=== PATIENT | female | born 1990 | race African-American/Black ===

== ENCOUNTER 2018-08-24 09:21 | Emergency (ER) | payer SELFPAY ==
[~2018-08-24] VITALS: Ht 162.6 cm; Wt 100.0 kg
[2018-08-24] MEDS ORDERED: HYDROCORTISONE (09:47)
[2018-08-24 11:43] VITALS: BP 126/50
== END 2018-08-24 11:48 | disposition home or self-care (01) ==
LOC: ER 09:21
DX: B35.4 Tinea corporis (principal); F12.10 Cannabis abuse, uncomplicated; F17.200 Nicotine dependence, unspecified, uncomplicated; Z79.899 Other long term (current) drug therapy
CPT/HCPCS: 99282

== ENCOUNTER 2025-06-24 00:52 | Emergency (ER) | payer SELFPAY ==
[~2025-06-24] VITALS: Ht 162.6 cm; Wt 85.5 kg
[~2025-06-24 00:52] MED LIST: HYDROCORTISONE
[2025-06-24 00:58] VITALS: O2SAT 100
[2025-06-24] MEDS: SODIUM CHLORIDE 0.9% 1,000 ML IV ONE (01:37)
[2025-06-24 01:42] LABS: BASOPHILS % 0.9 % (0.0-2.0); EOSINOPHILS % 0.2 % (0.0-5.0); HEMATOCRIT. 39.7 % (36.0-48.0); HEMOGLOBIN. 12.7 g/dL (12.0-16.0); LYMPHOCYTES % 30.7 % (20.0-50.0); MEAN PLATELET VOLUME 9.5 fl (7.4-10.4); MONOCYTES % 3.0 % (2.0-8.0); NEUTROPHILS % 65.2 % (40.0-76.0); PLATELET 351 x1000/uL (130-400); RED BLOOD CELL COUNT 4.62 mill/uL (4.2-5.4); RED CELL DISTRIBUTION WIDTH 14.6 % (11.6-14.6)
[2025-06-24] MEDS: MAGNESIUM/ALUMINUM HYDROXIDE/SIMETHICONE 30ML UDC PO ONE (01:45)
[2025-06-24] MEDS: ONDANSETRON HCL 4MG/2ML INJ IV ONE (01:45)
[2025-06-24] MEDS: PANTOPRAZOLE SODIUM 40 MG/VIAL IV ONE (01:45)
[2025-06-24 01:52] LABS: HCG SCREEN NEGATIVE
[2025-06-24 03:36] LABS: COLOR URINE YELLOW (YELLOW)
[2025-06-24 03:37] LABS: CLARITY URINE CLEAR (CLEAR); GLUCOSE URINE NEGATIVE (NEGATIVE); KETONES URINE 3+ (NEGATIVE); LEUKOCYTE ESTERASE URINE NEGATIVE (NEGATIVE); NITRITE URINE NEGATIVE (NEGATIVE); OCCULT BLOOD URINE NEGATIVE (NEGATIVE); PH URINE 6.0 (4.5-8.0); PROTEIN URINE 1+ (NEGATIVE); SPECIFIC GRAVITY URINE 1.022 (1.005-1.030); UROBILINOGEN URINE 0.2 E.U./dL (0.2-1.0)
[2025-06-24 03:39] LABS: BACTERIA URINE 2+; RBC URINE 0-2 /hpf (0-2); SQUAMOUS EPITHELIAL CELL URINE FEW /lpf (RARE/1+)
[2025-06-24 03:43] LABS: CREATININE 0.6 mg/dL (0.6-1.0)
[2025-06-24 03:44] LABS: ETHANOL BLOOD 125 mg/dL (<10); UREA NITROGEN BLOOD 8 mg/dL (9-23)
[2025-06-24 03:45] LABS: ASPARTATE AMINOTRANSFERASE 14 IU/L (<34)
[2025-06-24 03:46] LABS: BILIRUBIN DIRECT < 0.1 mg/dL (<=3.0); BILIRUBIN TOTAL 0.3 mg/dL (0.1-1.0); PROTEIN TOTAL 7.2 g/dL (6.0-8.3)
[2025-06-24 04:02] LABS: *AMPHETAMINES SCREEN URINE NEGATIVE (NEGATIVE)
[2025-06-24 04:03] LABS: *BENZODIAZEPINES SCREEN URINE NEGATIVE (NEGATIVE)
[2025-06-24 04:04] LABS: *BARBITURATES SCREEN URINE NEGATIVE (NEGATIVE); *COCAINE SCREEN URINE NEGATIVE (NEGATIVE); CANNABINOID URINE SCREEN PRESUMPTIVE POSITIVE (NEGATIVE); METHADONE URINE SCREEN NEGATIVE (NEGATIVE); OPIATES URINE SCREEN NEGATIVE (NEGATIVE); PHENCYCLIDINE URINE SCREEN NEGATIVE (NEGATIVE)
[2025-06-24 04:05] LABS: ECSTASY MDMA SCREEN URINE NEGATIVE (NEGATIVE)
[2025-06-24] MEDS ORDERED: ONDA4TAB50 MT (04:51)
[2025-06-24] MEDS ORDERED: PROT40 MT (04:51)
[2025-06-24 04:56] VITALS: BP 111/68; PULSE 62; RESP 11; TEMP 37; O2SAT 100
[2025-06-24] MEDS ORDERED: IOHEXOL-300 100 ML BOTTLE ONE (05:07)
[2025-06-25] MEDS ORDERED: TOPUD MT (12:53)
== END 2025-06-24 05:12 | disposition home or self-care (01) ==
LOC: ER 00:52
DX: K29.70 Gastritis, unspecified, without bleeding (principal); R11.2 Nausea with vomiting, unspecified; F10.129 Alcohol abuse with intoxication, unspecified; Z79.899 Other long term (current) drug therapy
CPT/HCPCS: 80076; 80305; 80048; 81003; 80320; 84703; 83690; 85025; 36415; 71045; 74177; 96361; 96374; 96375; 99285; Q9967; J2405; J2470; J7030; Z7610; G0480

== ENCOUNTER 2025-06-25 10:35 | Emergency (ER) | payer MEDICAID ==
[~2025-06-25] VITALS: Ht 162.6 cm; Wt 91.0 kg
[~2025-06-25 10:35] MED LIST changes: +ONDA4TAB50 MT; +PROT40 MT
[2025-06-25 10:46] VITALS: O2SAT 100
[2025-06-25 11:18] LABS: BASOPHILS % 1.4 % (0.0-2.0); EOSINOPHILS % 0.6 % (0.0-5.0); HEMATOCRIT. 35.2 % (36.0-48.0); HEMOGLOBIN. 11.6 g/dL (12.0-16.0); LYMPHOCYTES % 31.1 % (20.0-50.0); MEAN PLATELET VOLUME 9.2 fl (7.4-10.4); MONOCYTES % 5.0 % (2.0-8.0); NEUTROPHILS % 61.9 % (40.0-76.0); PLATELET 310 x1000/uL (130-400); RED BLOOD CELL COUNT 4.08 mill/uL (4.2-5.4); RED CELL DISTRIBUTION WIDTH 14.5 % (11.6-14.6)
[2025-06-25 11:35] LABS: CREATININE 0.6 mg/dL (0.6-1.0); UREA NITROGEN BLOOD 7 mg/dL (9-23)
[2025-06-25] MEDS: IBUPROFEN 400MG TABLET PO ONE (11:57)
[2025-06-25 12:32] LABS: CLARITY URINE CLEAR (CLEAR); COLOR URINE YELLOW (YELLOW); GLUCOSE URINE NEGATIVE (NEGATIVE); KETONES URINE NEGATIVE (NEGATIVE); OCCULT BLOOD URINE NEGATIVE (NEGATIVE); PH URINE 7.0 (4.5-8.0); PROTEIN URINE TRACE (NEGATIVE); SPECIFIC GRAVITY URINE 1.025 (1.005-1.030)
[2025-06-25 12:33] LABS: LEUKOCYTE ESTERASE URINE NEGATIVE (NEGATIVE); NITRITE URINE NEGATIVE (NEGATIVE); UROBILINOGEN URINE 0.2 E.U./dL (0.2-1.0)
[2025-06-25 12:48] LABS: BACTERIA URINE 1+; HYALINE CASTS URINE 0-5 /lpf; RBC URINE NONE SEEN /hpf (0-2); SQUAMOUS EPITHELIAL CELL URINE 1+ /lpf (RARE/1+); WBC URINE 0-2 /hpf (0-2)
[2025-06-25] MEDS ORDERED: TOPUD MT (12:53)
[2025-06-25 12:58] VITALS: BP 119/89; PULSE 92; RESP 16; TEMP 37; O2SAT 100
== END 2025-06-25 13:00 | disposition home or self-care (01) ==
LOC: ER 10:35
DX: M79.18 Myalgia, other site (principal); M79.89 Other specified soft tissue disorders; Z79.899 Other long term (current) drug therapy
CPT/HCPCS: 36415; 72170; 80048; 81003; 81025; 85025; 93971; 99284